=== PATIENT | female | born 2000 | race Caucasian/White ===

== ENCOUNTER → 2018-04-30 13:27 | Outpatient (REF) | payer MEDICAID, SELFPAY | LOC: LBN 13:27 | PROVIDERS: PCP Pediatrics; Visit Provider Nurse Practitioner Family | DX: R30.0 Dysuria (principal) | CPT/HCPCS: 87077; 87086; 87186 ==

== ENCOUNTER 2019-03-11 12:51 | Emergency (ER) | payer OTHER, SELFPAY ==
[2019-03-11 13:01] VITALS: BP 124/70; PULSE 96; RESP 14; TEMP 37.5; O2SAT 99
--- NOTE | 2019-03-11 13:12 | W.ED.GENAD ---
Discharge Plan Disposition Patient Disposition: HOME Condition: Improving Discharge Details Chief Complaint: Sorethroat Clinical Impression: Acute pharyngitis Primary Care Provider: Cynthia Patricio V ED Provider: Andrés Ruiz Home Meds and New Rx's Prescriptions: New penicillin V potassium 500 mg tablet 500 mg PO TID 10 Days Qty: 30 RF: 0 Continued fluoxetine [Prozac] 40 mg capsule 40 mg PO DAILY Qty: 30 RF: 1 medroxyprogesterone [Depo-Provera] 150 MG/1 ML suspension 150 mg IM ONCE Qty: 1 RF: 3 Discharge Instructions Instructions: Pharyngitis (ED) Additional Instructions: Take penicillin as prescribed for its entire course. Tylenol and/or ibuprofen as needed for discomfort. May use popsicles and/or frequent sips of fluids to maintain hydration. Return for difficulty swallowing, drooling, change to voice or any other acute concern Medical Decision Making 18-year-old female with 2 days of sore throat. She is not in any significant distress and her vital signs are unremarkable. She was seen in pediatric clinic on February 18 for similar illness that lasted 1 week. At that time her strep and mono tests were negative. Rapid strep test obtained today is positive. I will treat with a course of penicillin. Patient stable for home management HPI General Mode of arrival: ambulatory. Date/Time Provider Initiated Documentation: 03/11/19 12:57. Limitations to Documentation: no limitations. Information obtained by: patient and family. History of Present Illness 18 year old F presents to the emergency department with the chief complaint of 2 days of sore, described as moderate and similar to prior episodes, Quality is described as dull and constant, and is localized to the mouth. Patient reports no radiation. Patient started experiencing this day(s) and it has been constant. No relieving factors improve symptom(s), No exacerbating factors reported . Patient notes no other symptoms.; denies fever/chills and nausea/vomiting. Patient did receive the following treatments prior to arrival, none Related Data Home Medications Medication Instructions Recorded Confirmed medroxyprogesterone [Depo-Provera] 150 mg IM ONCE #1 vial 01/26/18 03/11/19 fluoxetine [Prozac] 40 mg PO DAILY #30 cap 03/09/19 03/11/19 penicillin V potassium 500 mg PO TID 10 Days #30 tab 03/11/19 Previous Rx's Medication Instructions Recorded medroxyprogesterone [Depo-Provera] 150 mg IM ONCE #1 vial 01/26/18 fluoxetine [Prozac] 40 mg PO DAILY #30 cap 03/09/19 penicillin V potassium 500 mg PO TID 10 Days #30 tab 03/11/19 Allergies Allergy/AdvReac Type Severity Reaction Status Date / Time diphenhydramine HCl Allergy Mild RASH Unverified 03/11/19 13:08 [From Benadryl] General Stated Complaint: Sorethroat EVELYN: 4 Review of Systems Review of Systems No fever, vomiting. Tolerating liquids, no drooling. 6 systems reviewed and otherwise neg [facility] Medical History Anxiety Depression Contraception (Acute) Nonintractable migraine (Acute 01/12/16) Acne (Resolved) Febrile seizure (Resolved) History of mononucleosis (Resolved) Allergy to diphenhydramine (from Benadryl) (Inactive) Family History Mother Healthy adult on routine physical examination Migraines Mental disorder Father Substance abuse Essential hypertension Heart disease Hyperlipidemia Mental disorder Myocardial infarction Asthma Other H/O blood clots Diabetes Mental disorder Stroke Sister Asthma Social History Smoking/Tobacco Use Status: Never Do you feel safe in your relationship?: Yes Female Reproductive History Menstrual control method: progesterone injection Exam Narrative Exam Narrative: GEN: awake, alert, oriented 3. Pleasant, well groomed, interactive. HEAD: Normocephalic, atraumatic ENT: Mucous membranes moist, oropharynx with erythematous swollen tonsils, overlying white exudate, no asymmetry, uvula midline. Right tympanic membrane occluded by cerumen, left tympanic membrane unremarkable, External ear exam unremarkable EYES: PERRL, EOMI NECK: Full ROM, no LISBETH, no menigismus CHEST/RESP: Nontender, clear to auscultation bilateral, no wheeze/rhonchi/rales CARDIOVASCULAR: RRR, no murmur, rub guillermo. 2+ Rad pulse bilateral ABDOMEN: Soft, nontender, no mass. +Bowel sounds EXT: Full ROM, no edema, no rash Neuro: Grossly normal neurologic exam, conversant, interactive. Psych: Speech fluent, thoughts congruent, affect normal Course Vital Signs Temperature 37.5 C 03/11/19 13:01 Pulse 96 H 03/11/19 13:01 Respiratory Rate 14 03/11/19 13:01 Blood Pressure 124/70 03/11/19 13:01 Pulse Oximetry 99 03/11/19 13:01 Temperature 37.5 C 03/11/19 13:01 Temperature Source Skin 03/11/19 13:01 Pulse 96 H 03/11/19 13:01 Respiratory Rate 14 03/11/19 13:01 Blood Pressure 124/70 03/11/19 13:01 Blood Pressure Position Sitting 03/11/19 13:01 Pulse Oximetry 99 03/11/19 13:01 Oxygen Delivery Method Room Air 03/11/19 13:01 Oxygen Flow Rate 0 03/11/19 13:01
[2019-03-11 13:18] VITALS: TEMP 37.5
[2019-03-11] MEDS: Acetaminophen 500 MG TAB 1000 MG PO (13:18)
== END 2019-03-11 13:23 | disposition home or self-care (01) ==
PROVIDERS: Emergency Provider Emergency Medicine; PCP Pediatrics
DX: J02.9 Acute pharyngitis, unspecified (principal)
CPT/HCPCS: 87880; 99282

== ENCOUNTER 2019-03-12 16:02 | Outpatient (REF) | payer OTHER, SELFPAY ==
[2019-03-15 14:28] LABS: Chlamydia Result Negative; GC Result Negative; Specimen Description URINE
== END 2019-03-12 16:22 ==
LOC: LBN 16:02
PROVIDERS: PCP Pediatrics; Visit Provider Nurse Practitioner Family
DX: Z11.3 Encounter for screening for infections with a predominantly sexual mode of transmission (principal)
CPT/HCPCS: 87491; 87591

== ENCOUNTER 2019-08-02 10:34 | Emergency (ER) | payer SELFPAY ==
[2019-08-02 10:39] VITALS: BP 124/65; PULSE 108; RESP 16; TEMP 37.3; O2SAT 100
--- NOTE | 2019-08-02 10:50 | ED.GENADUL_ITS ---
Discharge Plan Disposition Patient Disposition: HOME Condition: Stable Discharge Details Chief Complaint: FlankPain Clinical Impression: Back pain Primary Care Provider: Cynthia Patricio V ED Provider: Radha Aldana Home Meds and New Rx's Prescriptions: New cyclobenzaprine 5 mg tablet 5 mg PO TID PRN (Reason: muscle spasm) Qty: 15 RF: 0 lidocaine [Lidoderm] 5 % adhesive patch,medicated 1 patch TP DAILY Qty: 15 RF: 0 Discharge Instructions Instructions: Cyclobenzaprine (By mouth), Lidocaine Patch (On the skin), Back Pain (ED) Additional Instructions: Please return immediately to the emergency department if you develop any new or worsening symptoms or if you become otherwise concerned. It is extremely important you call soon as possible to make appointment to be seen in follow-up for this visit by your primary care doctor. Please do not drive, make important decisions, or operate machinery for at least 4 hours after emergency room visit as you have been given Valium. Also do not drive, make important decisions, or operate machinery while taking Flexeril and until you have tried the medication and determine whether it makes you feel woozy or sleepy. Referrals: Cynthia Patricio MD [Primary Care Provider] - Discharge Data Discharge Date/Time-TO BE ENTERED AT DEPARTURE: 08/02/19 12:56 Medical Decision Making Michelle Banuelos is a 18-year-old woman with a history of anxiety who presented to the emergency department with 3 days of ongoing back pain, unchanged since onset, pain in both lumbar and thoracic areas without associated symptoms, worse with changes in position/movement, nonpleuritic, nonexertional. On examination patient is very well and nontoxic appearing. She appears comfortable during position changes in exam room. Normal neurologic exam the lower extremities, normal gait. Tenderness palpation that reproduces pain in the left L4 paraspinal region and also in the right T10 paraspinal region without bony tenderness palpation of the thoracic or lumbar spine. Concern for likely musculoskeletal pain/muscle spasm, doubt kidney stone, pyelonephritis. Exam/history is not consistent with cauda equina syndrome, epidural abscess/hematoma, other cord compression, acute aortic pathology, acute emergent intra-abdominal process, pulmonary embolism, ACS, sepsis, other acute emergent life/limb threatening process. Plan for p.o. Valium, Lidoderm patch, UA. Will monitor and reassess. Patient reports pain significantly improved after Valium and Lidoderm patch. Postvoid residual shows no urine in bladder per nursing. UA shows ketones, trace blood. Tachycardia resolved. Suspect likely musculoskeletal pain, however I did discuss obtaining CT for rule out kidney stones given trace blood in urine. Risks and benefits of CT scan were discussed with patient, who states that she feels much better at this time and would like to hold off on CT. I had a lengthy discussion with the patient regarding return to emergency department cautions including red flags for which to return, home care, and importance of outpatient follow-up. Patient verbalized understanding of the plan and was amenable. All questions were answered. Patient was discharged home with clear plan for outpatient follow-up. Medical Records Medical records reviewed: Yes I reviewed the patient's medical records. Lab Data Lab results reviewed: Yes I reviewed the patient's lab results. Labs: Laboratory Tests Range/Units 08/02/19 11:00 Urine Color (Yellow) Yellow Urine Clarity (Clear) Sl cloudy Urine pH (5-8) 5.5 Ur Specific [place] (1.005-1.025) 1.025 Urine Protein (Negative) mg/dL Negative Urine Ketones (Negative) mg/dL 15 H Urine Blood (Negative) Trace-lysed H Urine Nitrite (Negative) Negative Urine Bilirubin (Negative) Small H Urine Urobilinogen (Up TO 0.2) EU/dL 0.2 Ur Leukocyte Esterase (Negative) Negative Urine RBC (0-2) HPF Negative Urine WBC (0-5) HPF 0-2 Ur Epithelial Cells (Negative) HPF Moderate Urine Crystals (Negative) HPF Negative Urine Bacteria (Negative) HPF Moderate Urine Casts (Negative) LPF Negative Urine Mucus (Negative) Moderate Ur Culture Indicated? No/sq. contamination Urine Glucose (Negative) mg/dL Negative HPI General Mode of arrival: ambulatory . Date/Time Provider Initiated Documentation: 08/02/19 10:50 . Limitations to Documentation: no limitations . Information obtained by: patient, RN notes reviewed and old records reviewed . HPI Narrative: Michelle Banuelos is a 18-year-old woman with a history of anxiety presenting to the emergency department with back pain. Patient reports that she has had history of chronic back pain, although she states that her pain is usually relieved by using heating pad. Patient reports that 3 days ago she was seated when she developed sudden onset pain in her lower back, worse on the left. Patient reports that pain is worse with movement and position changes such as moving from lying down to sitting or rolling over in bed. Patient reports that severity of pain was maximal at onset, improved somewhat with rest but does not go away. Patient reports that she also has pain bilaterally in her mid back, this seems to radiate from her lower back pain and is not as severe as her lower back pain. Pain is similar in location (lower and mid back) and quality (feels like a spasm) to pain she has had before, but is worse in severity and duration than prior episodes. Patient denies any other pain. Pain is nonpleuritic, nonexertional. She denies fevers, cough, shortness of breath, numbness, weakness, change in urinary habits/function, constipation/diarrhea/change in bowel function, rash. Patient reports that she feels otherwise in her usual state of health. Patient states that she has not had a period since last spring secondary to Depakote shot, although she has now switched over to p.o. control. She takes no other p.o. medications. Has taken nothing at home for the pain. Related Data Home Medications Medication Instructions Recorded Confirmed cyclobenzaprine 5 mg PO TID PRN #15 tab 08/02/19 lidocaine [Lidoderm] 1 patch TP DAILY #15 each 08/02/19 Previous Rx's Medication Instructions Recorded cyclobenzaprine 5 mg PO TID PRN #15 tab 08/02/19 lidocaine [Lidoderm] 1 patch TP DAILY #15 each 08/02/19 Allergies Allergy/AdvReac Type Severity Reaction Status Date / Time diphenhydramine HCl Allergy Mild RASH Unverified 08/02/19 10:45 [From Bencamilol] General Stated Complaint: FlankPain EVELYN: 3 Review of Systems Narrative: Constitutional: denies fevers Eyes: denies eye pain ENT: denies facial pain, dental pain, sore throat Cardiovascular: denies chest pain Respiratory: denies SOB, cough GI: denies abdominal pain, vomiting, diarrhea : Denies dysuria, difficulty urinating, urinary frequency, reports flank pain MSK: denies neck pain, arthralgias, myalgias, reports back pain Skin: denies rash Neuro: denies headaches, numbness, weakness [facility] Medical History Acne (Resolved) Allergy to diphenhydramine (from Benadryl) (Inactive) Anxiety (Acute) Contraception (Acute) Depression (Acute) Febrile seizure (Resolved) History of mononucleosis (Resolved) Nonintractable migraine (Acute 01/12/16) Social History Smoking/Tobacco Use Status: Never Alcohol Intake: never Drug use: Never Substance use type: does not use Do you feel safe at home: Yes Do you feel safe in your relationship?: Yes Female Reproductive History Menstrual control method: progesterone injection (Lot#: [id number]; 03/2021) Exam Narrative Exam Narrative: Constitutional: well and [id number], pleasant, conversing normally, moving from lying down to sitting position without apparent discomfort HENT: head atraumatic/normocephalic/normal inspection, mucous membranes moist Eyes: conjunctiva normal, sclera normal, pupils 3mm b/l Neck: no stridor, normal ROM, trachea midline Resp: normal work of breathing, LCTAB Cardio: normal rate, normal rhythm, no murmur appreciated GI: abdomen soft, non-tender, non-distended, positive CVA tenderness bilaterally Back: normal inspection, no rash, tenderness to palpation left paraspinal area L4 level that reproduces pain, tenderness to palpation right paraspinal level at T10 that reproduces pain, no thoracic or lumbar vertebral tenderness palpation, no overlying skin changes Skin: warm, dry, normal color, no rash Neuro: alert, not altered, grossly non-focal, motor 5 out of 5 bilateral lower extremities, normal sensation bilateral lower extremities including saddle region, normal gait, normal tone Ext: no edema Psych: normal mood, normal affect, normal behavior Course Vital Signs Vital signs: Vital Signs Temperature 37.3 C 08/02/19 10:39 Pulse 108 H 08/02/19 10:39 Respiratory Rate 16 08/02/19 10:39 Blood Pressure 124/65 08/02/19 10:39 Pulse Oximetry 100 08/02/19 10:39 Temperature 37.3 C 08/02/19 10:39 Temperature Source Skin 08/02/19 10:39 Pulse 108 H 08/02/19 10:39 Respiratory Rate 16 08/02/19 10:39 Respiratory Effort 08/02/19 10:47 Blood Pressure 124/65 08/02/19 10:39 Blood Pressure Position Sitting 08/02/19 10:39 Pulse Oximetry 100 08/02/19 10:39 Oxygen Delivery Method Room Air 08/02/19 10:39 Oxygen Flow Rate 0 08/02/19 10:39 Pain Level 8 08/02/19 10:39 Comment tried heating pad without relief 08/02/19 10:39
[2019-08-02 11:09] LABS: Bilirubin Small (Negative); Blood Trace-lysed (Negative); Clarity Sl Cloudy (Clear); Glucose Negative (Negative); Ketones 15 mg/dL (Negative); Leukocyte Esterase Negative (Negative); Nitrite Negative (Negative); Specific Gravity 1.025 (1.005-1.025); Urobilinogen 0.2 EU/dL (Up TO 0.2); pH 5.5 (5-8)
[2019-08-02 11:16] LABS: Bacteria Moderate HPF (Negative); C & S Indicated? No/Sq. Contamination; Casts Negative LPF (Negative); Crystals Negative HPF (Negative); Epithelial Cells Moderate HPF (Negative); Mucus Moderate (Negative); RBC Negative HPF (0-2); WBC 0-2 HPF (0-5)
[2019-08-02] MEDS: Lidocaine 5% Patch 1 PATCH TP (11:36)
[2019-08-02] MEDS: diazePAM 5 MG TAB PO (11:37)
[2019-08-02 12:56] VITALS: BP 102/56; PULSE 101; RESP 18; TEMP 36.8; O2SAT 100
== END 2019-08-02 12:56 | disposition home or self-care (01) ==
PROVIDERS: Emergency Provider Student in an Organized Health Care Education/Training Program; PCP Pediatrics
DX: M54.5 Low back pain (principal); M54.6 Pain in thoracic spine
CPT/HCPCS: 81025; 99284; 81003; 81015

== ENCOUNTER 2020-05-18 15:55 | Emergency (ER) | payer SELFPAY ==
[2020-05-18 16:12] VITALS: BP 126/69; PULSE 81; RESP 20; TEMP 36.6; O2SAT 98
--- NOTE | 2020-05-18 16:30 | ED.GENADUL_ITS ---
Discharge Plan Disposition Patient Disposition: HOME Discharge Details Chief Complaint: Sorethroat Clinical Impression: Acute streptococcal pharyngitis Primary Care Provider: Cynthia Patricio V ED Provider: Justin Aldana Home Meds and New Rx's Prescriptions: New penicillin V potassium 500 mg tablet 500 mg PO BID Qty: 19 RF: 0 Discharge Instructions Instructions: Strep Throat (ED) Additional Instructions: Patient prefers to stay hydrated. Please allow for plenty of rest. Take antibiotic as prescribed. Follow-up with your primary care physician as needed. Return to the emerge department for any worsening or new concerning symptoms. Stand Alone Forms: Work Release Referrals: Cynthia Patricio MD [Primary Care Provider] - Discharge Data Discharge Date/Time-TO BE ENTERED AT DEPARTURE: 05/18/20 16:40 Medical Decision Making 19-year-old female here with pharyngitis. Rapid strep test positive. Discussed risk benefits of antibiotic treatment versus supportive care. Patient provided informed consent to treat with antibiotic. Penicillin initiated and prescription provided. Usual and customary discharge instructions were reviewed with the patient. HPI General Mode of arrival: ambulatory . Date/Time Provider Initiated Documentation: 05/18/20 16:30 . Limitations to Documentation: no limitations . Information obtained by: patient . HPI Narrative: 19-year-old female here with chief complaint of sore throat. Patient notes her boyfriend has had sore throat over the past week or so, was seen here in the emergency room and diagnosed with strep pharyngitis now on penicillin. She states her sore throat started this morning. Sore throat is mild to moderate. No modifiers. No associated difficulty swallowing. No changes to her voice. No fever. No rash. Patient has no abdominal pain or swelling. Related Data Home Medications Medication Instructions Recorded Confirmed penicillin V potassium 500 mg PO BID #19 tab 05/18/20 Previous Rx's Medication Instructions Recorded penicillin V potassium 500 mg PO BID #19 tab 05/18/20 Allergies Allergy/AdvReac Type Severity Reaction Status Date / Time diphenhydramine HCl Allergy Mild RASH Unverified 05/18/20 16:14 [From Benadryl] General Stated Complaint: Sorethroat EVELYN: 4 Review of Systems Constitutional Constitutional: Denies fever(s) ENT Ears, Nose, Mouth, and Throat: Reports as per HPI Cardiovascular Cardiovascular: Denies dyspnea Respiratory Respiratory: Denies cough and Denies dyspnea Gastrointestinal Gastrointestinal: Denies abdominal pain Integumentary/Breasts Skin/Breast: Denies rash PFSH Medical History Acne (Resolved) Allergy to diphenhydramine (from Benadryl) (Inactive) Anxiety (Acute) Contraception (Acute) Depression (Acute) Febrile seizure (Resolved) History of mononucleosis (Resolved) Nonintractable migraine (Acute 01/12/16) Family History Mother Healthy adult on routine physical examination Migraines Mental disorder Depression/anxiety Father Substance abuse Essential hypertension Heart disease Hyperlipidemia Mental disorder Depression/anxiety Myocardial infarction Asthma Other H/O blood clots PGM- from abd- caused stroke Diabetes PGM Mental disorder Grandparent - depression Stroke PGM Sister Asthma Social History Smoking/Tobacco Use Status: Never Alcohol Intake: never Drug use: Never Substance use type: does not use Do you feel safe at home: Yes Do you feel safe in your relationship?: Yes Female Reproductive History Menstrual control method: progesterone injection (Lot#: [id number]; 03/2021) Exam Const General: cooperative and no acute distress HENMT Mouth: moist mucous membranes and no muffled voice Throat: uvula midline, no peritonsillar masses and posterior oropharynx abnormal erythema and exudates; no cobblstoning and no edema Eyes Conjunctivae: normal conjunctivae Sclera: normal sclerae Neck Neck: trachea midline and supple Resp Auscultation: clear to auscultation bilaterally, no rales, no rhonchi and no wheezes Cardio Jugular venous pressure: no JVD Rate: regular rate and not tachycardic Rhythm: regular rhythm GI Palpation: soft, no masses and nontender Skin General skin exam: no rashes or lesions noted Neuro General: patient alert, patient awake and tone normal Course Vital Signs Vital signs: Vital Signs Temperature 36.6 C 05/18/20 16:12 Pulse 81 05/18/20 16:12 Respiratory Rate 20 05/18/20 16:12 Blood Pressure 126/69 05/18/20 16:12 Pulse Oximetry 98 05/18/20 16:12 Temperature 36.6 C 05/18/20 16:12 Temperature Source Skin 05/18/20 16:12 Pulse 81 05/18/20 16:12 Respiratory Rate 20 05/18/20 16:12 Respiratory Effort Non-Labored 05/18/20 16:15 Blood Pressure 126/69 05/18/20 16:12 Blood Pressure Position Sitting 05/18/20 16:12 Pulse Oximetry 98 05/18/20 16:12 Oxygen Delivery Method Room Air 05/18/20 16:12 Oxygen Flow Rate 0 05/18/20 16:12 Pain Level 4 05/18/20 16:12 Lab/Test Results Lab/Test Results: POC Strep Test-KENYA(Rapid) Start: 05/18/20 16:15 Freq: Status: Active Protocol: Document 05/18/20 16:25 (Rec: 05/18/20 16:25 [email or web address]) Strep test-KENYA(Rapid)-POC POC-Strep test-KENYA (Rapid) Positive POC-Strep test-KENYA (Rapid) Positive
--- NOTE | 2020-05-18 16:35 | NUR.NOTE ---
Referral to Care Management to Establish adult health care.Nursing Note:
[2020-05-18] MEDS: Penicillin V POTASSIUM 500 MG TAB PO (16:38)
--- NOTE | 2020-05-25 10:19 | PDOC.ERCMPRO ---
- If Service Date Differs Date of service: 05/18/20 Time of Service: 10:19 Care Management Progress Note At ED provider's request, INGRID coordinated referral to Manjula Huddleston MD, on-call provider, of [facility], to assist Michelle in obtaining a follow up appointment and in establishing care with a PCP. The following day, INGRID was advised by Lakeisha Weber, clinical companion caregiver at [facility], that patient was called and offered an appointment, but patient declined saying she did not want a provider at this time.
== END 2020-05-18 16:40 | disposition home or self-care (01) ==
PROVIDERS: Emergency Provider Student in an Organized Health Care Education/Training Program; PCP Pediatrics
DX: J02.0 Streptococcal pharyngitis (principal)
CPT/HCPCS: 87880; 99283

== ENCOUNTER 2020-12-03 13:39 | Emergency (ER) | payer SELFPAY ==
--- NOTE | 2020-12-03 13:30 | RT.EKG_ITS ---
APPROVED REPORT Exam: Resting ECG Patient Location: E HR:86 bpm ECG Measurements Heart Rate 86 AXIS MO 118 P 53 QRSd 80 QRS 103 QT 346 T 25 QTc 415 Conclusion Sinus rhythm...normal P axis, V-rate 60- 99
[2020-12-03 13:46] VITALS: BP 125/72; PULSE 121; RESP 20; TEMP 37.2; O2SAT 99
[2020-12-03 13:50] VITALS: RESP 20
[2020-12-03 14:32] VITALS: BP 117/64; BP 119/78; BP 121/67; PULSE 77; PULSE 78; PULSE 89
--- NOTE | 2020-12-03 14:33 | ED.GENADUL_ITS ---
Discharge Plan Disposition Patient Disposition: HOME Condition: Improving Discharge Details Clinical Impression: Episodic peripheral vertigo Primary Care Provider: None,None ED Provider: Andrés Ruiz Home Meds and New Rx's Prescriptions: New meclizine 25 mg tablet 25 mg PO BID PRN (Reason: dizziness) Qty: 10 RF: 0 Discharge Instructions Instructions: Vertigo (ED) Additional Instructions: Continue small, frequent sips of fluids so that you maintain good hydration. Avoid caffeinated and alcoholic drinks as they may promote dehydration. May trial meclizine twice daily if needed for persistent dizziness. We have asked our care management team to assist you in arranging the establishment of primary care in this area. Return to the ER for any acute concerns. Medical Decision Making Medical Records Medical records narrative: 20-year-old female presents for a number of complaints. First is that she has had some intermittent episodes of dizziness which she describes as a motion sensation that is worse with movement of the head and similar to previous episodes of vertigo. She is not been ill in any way and specifically denies fever, chills, rhinorrhea, sinus pain or pressure. Secondarily, she has had vaginal itching for which she tried vaginal Monistat. No new sexual partners, no foul-smelling discharge, no abdominal pain. Patient underwent screening EKG which was unremarkable. Recommended the patient that we rule out anemia, electrolyte abnormality, or dehydration through phlebotomy which she declines at this time. She underwent orthostatic vital signs which were normal. She was given a Diflucan p.o. for vaginal yeast infection and we will trial meclizine as needed for peripheral vertigo. She will return if she develops a headache, fever, worsening symptoms or any other acute concerns. We will have her referred to establish primary care. HPI General Mode of arrival: ambulatory . Date/Time Provider Initiated Documentation: 12/03/20 14:19 . Limitations to Documentation: no limitations . Information obtained by: patient . History of Present Illness 20 year old F presents to the emergency department with the chief complaint of Dizziness, described as mild, and is localized to the head. Patient reports no radia tion. Patient started experiencing this day(s) and it has been intermittent. Rest improves symptom(s), Movement worsens symptoms . Patient notes other (vaginal itching). Patient did receive the following treatments prior to arrival, none Related Data Home Medications Medication Instructions Recorded Confirmed meclizine 25 mg PO BID PRN #10 tab 12/03/20 Previous Rx's Medication Instructions Recorded meclizine 25 mg PO BID PRN #10 tab 12/03/20 Allergies Allergy/AdvReac Type Severity Reaction Status Date / Time diphenhydramine HCl Allergy Mild RASH Unverified 12/03/20 13:49 [From Benadryl] General Stated Complaint: Dizzy/Sync EVELYN: 3 Review of Systems Narrative: 6 systems reviewed and otherwise neg [facility] Medical History (Updated 12/03/20 @ 14:45 by Andrés Ruiz MD) Acne Allergy to diphenhydramine (from Benadryl) Anxiety Contraception Depression Febrile seizure History of mononucleosis Nonintractable migraine (01/12/16) Family History Mother Healthy adult on routine physical examination Migraines Mental disorder Depression/anxiety Father Substance abuse Essential hypertension Heart disease Hyperlipidemia Mental disorder Depression/anxiety Myocardial infarction Asthma Other H/O blood clots PGM- from abd- caused stroke Diabetes PGM Mental disorder Grandparent - depression Stroke PGM Sister Asthma Social History Smoking/Tobacco Use Status: Current every day Tobacco Type: e-cigarettes Smoking risk assessment performed?: Yes Alcohol Intake: current Alcohol Intake frequency: holidays/special occasions only Drug use: Never Substance use type: does not use Do you feel safe at home: Yes Do you feel safe in your relationship?: Yes Female Reproductive History Menstrual control method: progesterone injection (Lot#: [id number]; 03/2021) Exam Narrative Exam Narrative: GEN: awake, alert, oriented 3. Pleasant, well groomed, interactive. HEAD: Normocephalic, atraumatic ENT: Mucous membranes moist, oropharynx unremarkable, External ear exam unremarkable EYES: PERRL, EOMI NECK: Full ROM, no LISBETH, no menigismus CHEST/RESP: Nontender, clear to auscultation bilateral, no wheeze/rhonchi/rales CARDIOVASCULAR: RRR, no murmur, rub guillermo. 2+ Rad pulse bilateral ABDOMEN: Soft, nontender, no mass. +Bowel sounds EXT: Full ROM, no edema, no rash Neuro: Grossly normal neurologic exam, conversant, interactive. Psych: Speech fluent, thoughts congruent, affect normal Course Vital Signs Vital signs: Vital Signs Temperature 37.2 C 12/03/20 13:46 Pulse 121 H 12/03/20 13:46 Respiratory Rate 20 12/03/20 13:46 Blood Pressure 125/72 12/03/20 13:46 Pulse Oximetry 99 12/03/20 13:46 Temperature 37.2 C 12/03/20 13:46 Temperature Source Skin 12/03/20 13:46 Pulse 121 H 12/03/20 13:46 Respiratory Rate 20 12/03/20 13:50 Respiratory Effort 12/03/20 13:50 Respiratory Depth Normal 12/03/20 13:50 Respiratory Pattern Normal 12/03/20 13:50 Blood Pressure 125/72 12/03/20 13:46 Blood Pressure Position Sitting 12/03/20 13:46 Pulse Oximetry 99 12/03/20 13:46 Oxygen Delivery Method Room Air 12/03/20 13:46 Oxygen Flow Rate 0 12/03/20 13:46 Pain Level 0 12/03/20 13:46
[2020-12-03] MEDS: Meclizine 25 MG TAB PO (14:44)
[2020-12-03] MEDS: Fluconazole 150 MG TAB PO (14:44)
--- NOTE | 2020-12-03 14:49 | NUR.NOTE ---
Nursing Note: Referral given to Care Management to establish care with a PCP.Michelle Campo
[2020-12-03 14:51] VITALS: BP 125/72; PULSE 90; RESP 20; TEMP 37.2; O2SAT 99
--- NOTE | 2020-12-04 16:12 | PDOC.ERCMPRO ---
- If Service Date Differs Date of service: 12/04/20 Time of Service: 16:12 Care Management Progress Note Michelle was seen in the ED on 12/03/20 for peripheral vertigo. CM receives a request to help Michelle establish care with a PCP. CM contacts Michelle by telephone to inquire if she has health insurance. Michelle advises she does not currently have health insurance and is not interested in applying for health insurance. She also does not want a primary care physician at this time. When CM attempts to discuss this further with Michelle, she reports she's at work and does not have the time to discuss it. CM will outreach to her at a later time.
== END 2020-12-03 14:51 | disposition home or self-care (01) ==
PROVIDERS: Emergency Provider Emergency Medicine
DX: H81.399 Other peripheral vertigo, unspecified ear (principal); B37.3 Candidiasis of vulva and vagina
CPT/HCPCS: 81025; 93005; 99283; 93010

== ENCOUNTER 2022-01-08 16:37 | Emergency (ER) | payer SELFPAY ==
[2022-01-08 16:47] VITALS: BP 131/78; PULSE 105; RESP 18; TEMP 36.7; O2SAT 100
--- NOTE | 2022-01-08 17:00 | DI.RAD_ITS ---
Exam(s) XR CHEST 2V PA LATERAL EXAM: XR CHEST 2V PA LATERAL CLINICAL HISTORY: posterior pain TECHNIQUE: 2D digital imaging was performed. COMPARISON: No exams were available for comparison FINDINGS: MEDIASTINUM: Normal. HEART: Normal. PULMONARY VASCULATURE: Normal. LUNGS: Clear. PLEURAL SPACE: No pleural effusion or pneumothorax. BONE:Unremarkable for age. IMPRESSION: No acute abnormality. DATA REPOSITORY: RADIATION DOSE DELIVERED:
--- NOTE | 2022-01-08 17:18 | ED.GENADUL_ITS ---
Discharge Plan Disposition Patient Disposition: HOME Condition: Improving Discharge Details Clinical Impression: Acute thoracic myofascial strain Primary Care Provider: None,None ED Provider: Andrés Ruiz Home Meds and New Rx's Prescriptions: New methocarbamol 500 mg tablet 500 - 1,000 mg PO Q6H PRN (Reason: Back pain or spasm) Qty: 14 0RF Discharge Instructions Instructions: Thoracic Back Strain (ED) Additional Instructions: Small, frequent sips of fluids so that you maintain good hydration. Your urine showed that you are well-hydrated today. You may continue to use [id number] Lidoderm patches if you wish. They should be used 12 hours and then with 12 hours off. May apply warm, moist heat to area to speed healing. May use the provided Robaxin as needed for muscular pain and discomfort. Tylenol and/or ibuprofen as needed for persistent pain. 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 She does not have a cough, fever, or shortness of breath. No change to urinary pattern. On exam she has reproducible tenderness of the mid thoracic paraspinous musculature with mild spasm present. Most consistent with muscular spasm but must rule out underlying pneumothorax, occult pneumonia, or bony process and patient referred for screening chest x-ray and urinalysis. She is not , urine is unremarkable. Chest x-ray: No acute cardiopulmonary process Will trial a course of Robaxin for as needed use at home. Patient may use gentle massage as well. Discussed with her home management. She is stable and appropriate for discharge at this time HPI General Mode of arrival: ambulatory . Date/Time Provider Initiated Documentation: 01/08/22 16:41 . Limitations to Documentation: no limitations . Information obtained by: patient . History of Present Illness 21 year old F presents to the emergency department with the chief complaint of Mid back pain x 4 days, described as moderate, Quality is described as dull and constant, Patient reports no radiation. Patient started experiencing this day(s) and it has been constant. improves with Rest improves symptom(s), Movement worsens symptoms . Patient notes denies chest pain, cough, rash and shortness of breath. Patient did receive the following treatments prior to arrival, none Related Data Home Medications Medication Instructions Recorded Confirmed methocarbamol 500 mg tablet 500 - 1,000 mg PO Q6H PRN #14 tab 01/08/22 Previous Rx's Medication Instructions Recorded methocarbamol 500 mg tablet 500 - 1,000 mg PO Q6H PRN #14 tab 01/08/22 Allergies Allergy/AdvReac Type Severity Reaction Status Date / Time diphenhydramine HCl Allergy Mild RASH Unverified 01/08/22 16:58 [From Benadryl] General Stated Complaint: Nk/Back Pain EVELYN: 4 Review of Systems Narrative: 6 reviewed and - PFSH All Active Problems (Updated 01/08/22 @ 17:55 by Andrés Ruiz MD) Episodic peripheral vertigo (Acute) Acute thoracic myofascial strain (Acute) Anxiety (Acute) Depression (Acute) Contraception (Acute) Nonintractable migraine (Acute 01/12/16) Medical History (Updated 01/08/22 @ 17:55 by Andrés Ruiz MD) Acne Allergy to diphenhydramine (from Benadryl) Febrile seizure History of mononucleosis Family History Mother Healthy adult on routine physical examination Migraines Mental disorder Depression/anxiety Father Substance abuse Essential hypertension Heart disease Hyperlipidemia Mental disorder Depression/anxiety Myocardial infarction Asthma Other H/O blood clots PGM- from abd- caused stroke Diabetes PGM Mental disorder Grandparent - depression Stroke PGM Sister Asthma Social History Smoking/Tobacco Use Status: Current every day Tobacco Type: e-cigarettes Tobacco: How many years used: 2 Smoking risk assessment performed?: Yes Alcohol Intake: current Alcohol Intake frequency: holidays/special occasions only Drug use: Never Substance use type: does not use Do you feel safe at home: Yes Do you feel safe in your relationship?: Yes Female Reproductive History Menstrual control method: progesterone injection (Lot#: [id number]; 03/2021) Exam Narrative Exam Narrative: GEN: awake, alert, oriented 3. Pleasant, well groomed, interactive. HEAD: Normocephalic, atraumatic ENT: Mucous membranes moist, oropharynx unremarkable, External ear exam unremarkable EYES: PERRL, EOMI NECK: Full ROM, no LISBETH, no menigismus CHEST/RESP: Nontender, clear to auscultation bilateral, no wheeze/rhonchi/rales CARDIOVASCULAR: RRR, no murmur, rub guillermo. 2+ Rad pulse bilateral Back: Mid thoracic paraspinous muscular tenderness without midline tenderness, step-off or deformity. No rash present. EXT: Full ROM, no edema, no rash Neuro: Grossly normal neurologic exam, conversant, interactive. Psych: Speech fluent, thoughts congruent, affect normal Course Vital Signs Vital signs: Vital Signs Temperature 36.7 C 01/08/22 16:47 Pulse 105 H 01/08/22 16:47 Respiratory Rate 18 01/08/22 16:47 Blood Pressure 131/78 01/08/22 16:47 Pulse Oximetry 100 01/08/22 16:47 Temperature 36.7 C 01/08/22 16:47 Temperature Source Tympanic 01/08/22 16:47 Pulse 105 H 01/08/22 16:47 Respiratory Rate 18 01/08/22 16:47 Respiratory Effort 01/08/22 16:54 Blood Pressure 131/78 01/08/22 16:47 Blood Pressure Position Sitting 01/08/22 16:47 Pulse Oximetry 100 01/08/22 16:47 Oxygen Delivery Method Room Air 01/08/22 16:47 Oxygen Flow Rate 0 01/08/22 16:47 Pain Level 5 01/08/22 16:54 Lab/Test Results Lab/Test Results: POC- Test(urine) Negative
[2022-01-08 17:27] LABS: Bilirubin Negative (Negative); Blood Negative (Negative); Clarity Clear (Clear); Glucose Negative (Negative); Ketones Negative (Negative); Leukocyte Esterase Negative (Negative); Nitrite Negative (Negative); Specific Gravity 1.015 (1.005-1.025); Urobilinogen 0.2 EU/dL (Up TO 0.2)
--- NOTE | 2022-01-08 17:58 | DI.VRAD_ITS ---
PROCEDURE INFORMATION: Exam: XR Chest Exam date and time: 01/08/2022 5:24 PM Age: 21 years old Clinical indication: Other: Posterior pain TECHNIQUE: Imaging protocol: XR of the chest. Views: 2 views. COMPARISON: CT ABD PELVIS WITH CONTRAST 01/23/2016 10:14 AM FINDINGS: Lungs: Clear lungs. Pleural spaces: No sizable pleural effusion. No pneumothorax. Heart/Mediastinum: Cardiomediastinal silhouette is within normal limits. Bones/joints: No acute displaced fracture or dislocation. IMPRESSION: No acute cardiopulmonary process. Dictated and Authenticated by: Roosevelt Escobedo MD. Ordering:PROMISE Bowen MD
[2022-01-08] MEDS: Methocarbamol 750 MG TAB 1500 MG PO (18:22)
== END 2022-01-08 18:42 | disposition home or self-care (01) ==
PROVIDERS: Emergency Provider Emergency Medicine
DX: S29.012A Strain of muscle and tendon of back wall of thorax, initial encounter (principal); X50.1XXA Overexertion from prolonged static or awkward postures, initial encounter
CPT/HCPCS: 81025; 99283; 71046; 81003

== ENCOUNTER 2023-01-11 06:52 | Emergency (ER) | payer SELFPAY ==
[2023-01-11 06:57] VITALS: BP 112/71; PULSE 133; RESP 24; TEMP 36.7; O2SAT 99
--- NOTE | 2023-01-11 07:23 | ED.GENADUL_ITS ---
Discharge Plan Disposition Patient Disposition: Home Condition: Stable Discharge Details Clinical Impression: Abdominal pain Primary Care Provider: None,None ED Provider: Ferdinand Rico Home Meds and New Rx's Prescriptions: New ondansetron 4 mg tablet,disintegrating 4 mg PO Q8H PRN (Reason: nausea and vomiting) Qty: 30 0RF Discharge Instructions Instructions: Mesenteric Adenitis (ED) Additional Instructions: You have evidence of a gastroenteritis/stomach bug your appendix was at the upper limits of normal, you were seen by the general surgeon and do not feel this is from your appendix at this time follow up with your primary care provider within 1 week if you feel more ill, have persisent vomiting or severe worsening pain return to the emergency department Discharge Data Discharge Date/Time-TO BE ENTERED AT DEPARTURE: 01/11/23 12:29 Medical Decision Making <Lena Russell DO - Last Filed: 01/11/23 22:05> Dr. Russell 0740 -- 22-year-old female with a history of anxiety and depression presents with vomiting, diarrhea and abdominal pain for the past 4 days. Heart rate 130s on arrival. Remainder vitals reassuring. Patient appears slightly uncomfortable but nontoxic. She is drinking Gatorade in the room. Her abdomen is soft and tender throughout including the right and left upper quadrants and right and left lower quadrants. She has no rebound tenderness, guarding or rigidity. She has no CVA tenderness. Suspect viral etiology. Also consider biliary colic, cholecystitis, pancreatitis, GERD, PUD, colitis, appendicitis, UTI. Will obtain screening labs, urinalysis, fluid, CT abdomen and pelvis. Urine negative. 0800 -- Case endorsed to Dr. Rico to follow-up on labs and imaging and final disposition. Dr. Rico [address] read as indeterminate possible appendicitis, also has mesenteric lymphadenopathy, mild bladder wall thickening and a right ovarian cyst 1.7cm. She denies any urinary symptoms. She is stable, still has tenderness in both llq and rlq without guarding. Will consult general surgery Dr Orta reviwed case and images and saw pt in person, does not feel this is appendicitis and can be d/c'd, has no guarding or rebound and tender in the llq and rlq, exam and history not consistent with appendicitis. Repeat cbc still without leukocytosis. She is stable for d/c, advised to f/u with pcp, return precautions given Medical Records Medical records reviewed: Yes I reviewed the patient's medical records. <Ferdinand Rico MD - Last Filed: 01/11/23 12:12> 0740 -- 22-year-old female with a history of anxiety and depression presents with vomiting, diarrhea and abdominal pain for the past 4 days. Heart rate 130s on arrival. Remainder vitals reassuring. Patient appears slightly uncomfortable but nontoxic. She is drinking Gatorade in the room. Her abdomen is soft and tender throughout including the right and left upper quadrants and right and left lower quadrants. She has no rebound tenderness, guarding or rigidity. She has no CVA tenderness. Suspect viral etiology. Also consider biliary colic, cholecystitis, pancreatitis, GERD, PUD, colitis, appendicitis, UTI. Will obtain screening labs, urinalysis, fluid, CT abdomen and pelvis. Urine negative. 0800 -- Case endorsed to Dr. Rico to follow-up on labs and imaging and final disposition. [address] read as indeterminate possible appendicitis, also has mesenteric lymphadenopathy, mild bladder wall thickening and a right ovarian cyst 1.7cm. She denies any urinary symptoms. She is stable, still has tenderness in both llq and rlq without guarding. Will consult general surgery Dr Orta reviwed case and images and saw pt in person, does not feel this is appendicitis and can be d/c'd, has no guarding or rebound and tender in the llq and rlq, exam and history not consistent with appendicitis. Repeat cbc still without leukocytosis. She is stable for d/c, advised to f/u with pcp, return precautions given Imaging Data Radiologic Study: Attestation: I personally reviewed and interpreted this imaging study as follows: Imaging: CT Scan Radiologist's impression: IMPRESSION: 1. Minimally dilated, thick-walled, fluid-filled appendix with minimal haziness in the periappendiceal fat. Findings are borderline but in the appropriate clinical setting could reflect early appendicitis. Clinical correlation requested. 2. Mesenteric lymphadenopathy, nonspecific. Consider mesenteric adenitis. Cannot exclude neoplasm. 3. Mild bladder wall thickening with adjacent stranding suggesting possible cystitis. Please correlate clinically. 4. Right ovarian cyst. 5. THIS REPORT CONTAINS FINDINGS THAT MAY BE CRITICAL TO PATIENT CARE. The findings were verbally communicated via telephone conference with Ferdinand Rico at 8:39 AM EDT on 01/11/2023. The findings were acknowledged and understood. HPI <Lena Russell DO - Last Filed: 01/11/23 22:05> General Mode of arrival: ambulatory . Date/Time Provider Initiated Documentation: 01/11/23 07:21 . Limitations to Documentation: no limitations . Information obtained by: patient . HPI Narrative: Patient is a 22-year-old female with history of anxiety and depression who presents to the ED with a complaint of vomiting once 4 days ago with diarrhea and abdominal pain for the past 4 days. Patient states the vomit was mainly food and bile. She states since then she has had multiple episodes of diarrhea which has been mainly watery and brown. She states it was near black a few days ago but now is yellow and brown again. She denies any hematemesis, hematochezia or melena. She states her abdominal pain is intermittent and crampy and briefly relieved with diarrhea but then returns. She states the abdominal pain is made better when laying flat. She states the pain in her abdomen is 7/10 at this time. She has not taken a medication for pain. She states she tried Pepto- Bismol a few days ago but had difficulty drinking it. 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 She states she is sexually active and does not use protection or contraception but denies any known ex posure to STDs, genital lesions or vaginal discharge. She denies any fever, chest pain, difficulty breathing, urinary symptoms, recent travel, recent surgery, recent antibiotics. Related Data Home Medications Medication Instructions Recorded Confirmed ondansetron 4 mg disintegrating 4 mg PO Q8H PRN nausea and 01/11/23 tablet vomiting #30 tabs Previous Rx's Medication Instructions Recorded ondansetron 4 mg disintegrating 4 mg PO Q8H PRN nausea and 01/11/23 tablet vomiting #30 tabs Allergies Allergy/AdvReac Type Severity Reaction Status Date / Time diphenhydramine HCl Allergy Mild RASH Unverified 01/11/23 08:35 [From Benadryl] General Stated Complaint: Nausea/Vomit/Diar EVELYN: 3 Review of Systems <DO Francoise Solis Last Filed: 01/11/23 22:05> All systems reviewed & are unremarkable except as noted in HPI and below Constitutional Constitutional: Reports as per HPI, Denies chills and Denies fever(s) Eyes Eyes: Denies blurry vision ENT Ears, Nose, Mouth, and Throat: Denies dizziness, Denies sore throat and Denies throat swelling Cardiovascular Cardiovascular: Denies chest pain and Denies dyspnea Respiratory Respiratory: Denies cough and Denies dyspnea Gastrointestinal Gastrointestinal: Reports abdominal pain, Reports diarrhea, Reports nausea and Reports vomiting Genitourinary Genitourinary: Denies hematuria and Denies dysuria Musculoskeletal Musculoskeletal: Denies back pain and Denies numbness Integumentary/Breasts Skin/Breast: Denies lesions and Denies rash Neurologic Neurologic: Denies dizziness, Denies localized weakness and Denies numbness Allergic/Immunologic Allergic/Immunologic: Denies throat swelling PFSH <Lena Russell DO - Last Filed: 01/11/23 22:05> All Active Problems (Updated 01/11/23 @ 21:43 by Bessy Orta DO) Gastroenteritis (Acute) Acute diarrhea (Acute) Intractable nausea and vomiting (Acute) Poor dentition (Acute) Abdominal pain (Acute) Contraception (Acute) Medical History Anxiety Depression Episodic peripheral vertigo Nonintractable migraine (01/12/16) Surgical History No significant past surgical history Family History Mother Healthy adult on routine physical examination Migraines Mental disorder Depression/anxiety Father Substance abuse Essential hypertension Heart disease Hyperlipidemia Mental disorder Depression/anxiety Myocardial infarction Asthma Other H/O blood clots PGM- from abd- caused stroke Diabetes PGM Mental disorder Grandparent - depression Stroke PGM Sister Asthma Social History Smoking/Tobacco Use Status: Current every day Tobacco Type: e-cigarettes Tobacco: How many years used: 2 Smoking risk assessment performed?: Yes Alcohol Intake: current Alcohol Intake frequency: holidays/special occasions only Drug use: Never Substance use type: does not use Do you feel safe at home: Yes Do you feel safe in your relationship?: Yes Female Reproductive History Menstrual control method: progesterone injection (Lot#: [id number]; 03/2021) Exam <DO Francoise Solis Last Filed: 01/11/23 22:05> Const General: cooperative and no acute distress Orientation: alert, awake and oriented x3 HENMT Head: normal to inspection Face and sinus: normal facial exam Eyes General: appearance normal, both eyes and all related structures Pupils: PERRL EOM: EOM intact bilaterally Neck Neck: normal visual inspection and No submandibular swelling Lymphatic: no lymphadenopathy noted Chest Chest: normal inspection of the chest and no tenderness Resp Effort & Inspection: normal respiratory effort and able to speak in complete sentences Auscultation: clear to auscultation bilaterally Cardio Rate: tachycardic Rhythm: regular rhythm GI Inspection: normal to inspection Palpation: soft, not firm, not rigid and tender in the LLQ, in the RLQ, in the LUQ, in the RUQ and suprapubicly Auscultation: hypoactive bowel sounds Back/Spine/Pelvis Back: no CVA tenderness Skin General skin exam: no rashes or lesions noted Neuro General: patient alert, patient awake and patient oriented x3 Cognition: normal cognition Speech: speech normal Motor: muscle tone normal throughout Sensory Exam: no sensory deficits noted Extrem General: normal to inspection, full ROM, capillary refill normal, no calf tenderness bilaterally and no edema Psych Appearance: grossly normal Mental Status: mental status grossly normal Speech and Movement: speech and movement normal Affect: normal affect Course <DO Francoise Solis Last Filed: 01/11/23 22:05> Vital Signs Vital signs: Vital Signs Temperature 98.1 F 01/11/23 06:57 Pulse 133 H 01/11/23 06:57 Respiratory Rate 24 01/11/23 06:57 Blood Pressure 112/71 01/11/23 06:57 Pulse Oximetry 99 01/11/23 06:57 Temperature 98.1 F 01/11/23 06:57 Pulse 133 H 01/11/23 06:57 Respiratory Rate 24 01/11/23 06:57 Blood Pressure 112/71 01/11/23 06:57 Pulse Oximetry 99 01/11/23 06:57 Sign Out <DO Francoise Solis Last Filed: 01/11/23 22:05> Sign Out Data: Sign Out Comment: Vomiting once on Friday. Diarrhea and diffuse abdominal pain for 4 days. Follow-up on labs and imaging and final disposition. Last updated by Lena Russell DO at 01/11/23 07:51
--- NOTE | 2023-01-11 07:45 | DI.CT_ITS ---
Exam(s) CT ABDOMEN PELVIS W EXAM: CT ABDOMEN PELVIS W CLINICAL HISTORY: abdominal pain, n/v TECHNIQUE: Imaging Protocol: Axial computed tomography images with coronal and sagittal reformatted images were created and reviewed CONTRAST MATERIAL: Intravenous: Omnipaque 350 Contrast volume:75 mL Oral: No COMPARISON: CT ABD PELVIS WITH CONTRAST from 01/23/2016 FINDINGS: ABDOMEN: Lung Bases: Normal where visualized. Liver: Normal density. No measurable mass. Portal, Superior Mesenteric, and Splenic Veins: Unremarkable. Gallbladder and Biliary Tract: No radiodense calculus or dilation. Pancreas: Normal density, no abnormal calcifications or inflammatory process. Spleen: Normal. Adrenals: No masses seen. Kidneys: Normal size, contour and axis. No radiodense stones or obstructive uropathy. No masses seen. Abdominal Aorta: Abdominal portion non-dilated. Bowel: No obstruction or bowel wall thickening. The appendix is fluid-filled with an enhancing wall. No appendicoliths is seen. Peritoneal Cavity: There is a small amount of pelvic ascites. No free air. Lymph Nodes: There are mildly enlarged lymph nodes seen in the mesentery. Bones: Within normal limits for the patient's age. Soft Tissues: Unremarkable. PELVIS: Bladder: The urinary bladder wall is thickened. The bladder is not well distended however. Reproductive Organs: There is a 1.9 cm right corpus luteal cyst. Lymph Nodes: Within normal limits. Bones: Within normal limits for the patient's age. IMPRESSION: 1. Upper limits of normal in size appendix with mild enhancing and thickening of the wall. No append icoliths. Questionable stranding around the appendix. This may represent early appendicitis in the appropriate clinical setting. Please correlate clinically. 2. Mildly enlarged lymph nodes in the mesentery concerning for mesenteric adenitis. Please correlate clinically. 3. Mild thickening of the wall of the urinary bladder. This may be due to underdistention however. Cystitis cannot be entirely excluded. Please correlate clinically. RADIATION DOSE DELIVERED: 589.43mGy.cm Total DLP DATA REPOSITORY: All CT scans at this facility are submitted to the National Radiology Data Registry (NRDR) Dose Index Registry (DIR) with the [employer] (ACR). RADIATION OPTIMIZATION: All CT scans at this facility use at least one of these dose optimization te chniques: automated exposure control; mA and/or kV adjustment per patient size (includes targeted exa ms where dose is matched to clinical indication); or iterative reconstruction.
[2023-01-11 07:53] LABS: Bilirubin Small (Negative); Blood Trace-intact (Negative); Clarity Sl Cloudy (Clear); Glucose Negative (Negative); Ketones 80 mg/dL (Negative); Leukocyte Esterase Negative (Negative); Nitrite Negative (Negative); Specific Gravity >= 1.030 (1.005-1.025); Urobilinogen 0.2 mg/dL (Up to 0.2); pH 6.5 (5-8)
[2023-01-11 08:08] LABS: COVID-19 PCR Negative (Negative); Influenza A PCR Negative (Negative); Influenza B PCR Negative (Negative); RSV PCR Negative (Negative)
[2023-01-11 08:09] LABS: Abs Immature Grans 0.01 10^3/uL (0.0-0.06); Absolute Basophil Count 0.02 10^3/uL (0.0-0.2); Absolute Eosinophil Count 0.05 10^3/uL (0.0-0.7); Absolute Monocyte Count 0.83 10^3/uL (0.1-0.8); Absolute Neutrophil Count 3.38 10^3/uL (1.2-6.7); Basophils % 0.4; Eosinophils % 0.9; HCT 49.5 % (36.0-46.0); Immature Grans % 0.2; Lymphocytes % 20.4; MCH 29.3 pg (27.0-33.0); MCHC 34.3 % (32.0-36.0); MCV 85 fL (80-95); Monocytes % 15.4; Neutrophils % 62.7; Platelet Count 295 10^3/uL (130-400); RDW 12.2 % (11.7-14.6); RDW-SD 38.1 fL; WBC 5.39 10^3/uL (4.4-10.8)
[2023-01-11 08:10] LABS: Source Nasopharynx
[2023-01-11 08:14] LABS: Bacteria Moderate HPF (Negative); Casts Negative LPF (Negative); Crystals Few Amorphous HPF (Negative); Epithelial Cells Many HPF (Negative); Mucus Negative (Negative); WBC 0-2 HPF (0-5)
[2023-01-11 08:15] LABS: C & S Indicated? No/Sq. Contamination
[2023-01-11] MEDS: Omnipaque 350 MG/ML 500 ML BTL-Imaging package 74 ML IJ (08:19)
[2023-01-11] MEDS: Normal Saline Flush 10 ML SYR IVP (08:23)
[2023-01-11] MEDS: Normal Saline - Diluent 50 ML VIAL IJ (08:23)
[2023-01-11 08:24] LABS: ALT 25 U/L (14-59); AST 17 U/L (15-37); Albumin 4.3 g/dL (3.4-5.0); Alkaline Phosphatase 85 U/L (46-116); Anion Gap 11.7 mmol/L (3-11); BUN 15 mg/dL (7-18); Bilirubin, Total 1.2 mg/dL (0.2-1.0); CO2 25.3 mmol/L (21.0-32.0); CREATININE 0.8 mg/dL (0.55-1.02); Calcium 9.6 mg/dL (8.5-10.1); Chloride 105 mmol/L (98-107); Estimated GFR 105.45 (mL/min/1.73m2); Glucose 104 mg/dL (74-106); Lipase 24 U/L (16-77); Potassium 3.7 mmol/L (3.5-5.1); Sodium 142 mmol/L (136-145); Total Protein 8.2 g/dL (6.4-8.2)
[2023-01-11] MEDS: Normal Saline 1,000 ML 1000 ML IV (08:35)
--- NOTE | 2023-01-11 08:40 | DI.VRAD_ITS ---
PROCEDURE INFORMATION: Exam: CT Abdomen And Pelvis With Contrast Exam date and time: 01/11/2023 8:18 AM Age: 22 years old Clinical indication: Abdominal pain TECHNIQUE: Imaging protocol: Computed tomography of the abdomen and pelvis with contrast. COMPARISON: CT ABD PELVIS WITH CONTRAST 01/23/2016 10:14 AM. Report not available. FINDINGS: Liver: No focal hepatic lesion identified. Gallbladder and bile ducts: No radiodense gallbladder calculi seen. Pancreas: No CT evidence for acute pancreatitis. Spleen: No splenomegaly. Adrenal glands: No mass. Kidneys and ureters: No hydronephrosis or evidence for pyelonephritis. Stomach and bowel: See Appendix finding. Appendix: The appendix is identified in the right lower quadrant. It is mildly thick-walled and fluid-filled as is the adjacent cecum. The appendix is minimally dilated to approximately 7 mm in maximum diameter. Mild haziness in the periappendiceal fat. Intraperitoneal space: Small amount of low-density pelvic fluid. Vasculature: No abdominal aortic aneurysm. Lymph nodes: Mesenteric lymphadenopathy. Urinary bladder: Mild thickening of the urinary bladder with stranding in the adjacent fat. Reproductive: Central hypodensity in the uterus, likely secretory phase endometrium. 1.7 cm right ovarian cyst. Bones/joints: No pertinent acute abnormality seen. Soft tissues: No pertinent acute abnormality seen. IMPRESSION: 1. Minimally dilated, thick-walled, fluid-filled appendix with minimal haziness in the periappendiceal fat. Findings are borderline but in the appropriate clinical setting could reflect early appendicitis. Clinical correlation requested. 2. Mesenteric lymphadenopathy, nonspecific. Consider mesenteric adenitis. Cannot exclude neoplasm. 3. Mild bladder wall thickening with adjacent stranding suggesting possible cystitis. Please correlate clinically. 4. Right ovarian cyst. 5. THIS REPORT CONTAINS FINDINGS THAT MAY BE CRITICAL TO PATIENT CARE. The findings were verbally communicated via telephone conference with Ferdinand Rico at 8:39 AM EDT on 01/11/2023. The findings were acknowledged and understood. Dictated and Authenticated by: Jael Brice MD. Ordering:WAYNE Streeter MD
[2023-01-11 08:50] VITALS: BP 96/67; PULSE 72; RESP 18; TEMP 37.5; O2SAT 100
[2023-01-11] MEDS: Ondansetron 4 MG/2 ML VIAL IVP (09:46)
[2023-01-11] MEDS: Ketorolac 15 MG/ML VIAL IVP (09:46)
[2023-01-11 10:26] LABS: Abs Immature Grans 0.02 10^3/uL (0.0-0.06); Absolute Basophil Count 0.02 10^3/uL (0.0-0.2); Absolute Eosinophil Count 0.03 10^3/uL (0.0-0.7); Absolute Lymphocyte Count 1.03 10^3/uL (1.2-3.4); Absolute Monocyte Count 0.71 10^3/uL (0.1-0.8); Absolute Neutrophil Count 4.54 10^3/uL (1.2-6.7); Basophils % 0.3; Eosinophils % 0.5; HCT 41.9 % (36.0-46.0); HGB 14.1 g/dL (11.2-15.7); Immature Grans % 0.3; Lymphocytes % 16.2; MCH 28.9 pg (27.0-33.0); MCHC 33.7 % (32.0-36.0); MCV 86 fL (80-95); MPV 9.6 fL (8.0-11.0); Monocytes % 11.2; Neutrophils % 71.5; Platelet Count 279 10^3/uL (130-400); RBC 4.88 10^6/uL (3.93-5.22); RDW 12.3 % (11.7-14.6); RDW-SD 38.9 fL; WBC 6.35 10^3/uL (4.4-10.8)
[2023-01-11 12:18] VITALS: BP 101/58; PULSE 67; RESP 18; TEMP 37.1; O2SAT 100
--- NOTE | 2023-01-11 13:04 | SCONE_ITS ---
Date of service: 01/11/23 Time of Service: 12:20 Assessment and Plan Assessment and plan (1) Abdominal pain: Status: Acute (2) Anxiety: (3) Depression: (4) Nonintractable migraine: (5) Poor dentition: Status: Acute (6) Intractable nausea and vomiting: Status: Acute (7) Acute diarrhea: Status: Acute (8) Gastroenteritis: Status: Acute Assessment and plan: Patient has been sick for approximately 4 days now she has no white count or left shift noted on repeat CBC. Minimal changes and some adenopathy noted on CT. This really was not appendicitis I would expect her to be much sicker and have a fever and white count and definite signs on CT. I did discuss with the patient that of course this could always be an early appendicitis if she is not feeling better in 24 hours or she starts developing more pain or fever and ca nnot keep any fluids down she should come back to the ER. I also discussed with Dr. Rico. We will discharge her home with some medication for nausea. He is comfortable with this diagnosis as well. This document was created with voice activated software and may contain errors. 60 mins spent with the patient today. History of Present Illness Narrative: Patient was seen and examined in the ER. She comes into the ER today complaining of 4 days of lower abdominal pain equally bilaterally, diarrhea (more than 3 liquid stools a day) but no blood. No fever or chills. She has had no appetite. She has been very nauseous. Today she developed vomiting and the became became worse and she came into the ER. She did receive IV fluids, antiemetics and pain medication and is feeling better. She still is not really hungry. She has never had anything like this before. She denies any travel. No recent antibiotics. 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 However its only lasted 1 to 2 days and this has been prolonged. No one else at home is ill. She has never had any abdominal surgery before. Review of Systems All systems reviewed & are unremarkable except as noted in HPI and below PFSH All Active Problems (Updated 01/11/23 @ 21:43 by Bessy Orta DO) Gastroenteritis (Acute) Acute diarrhea (Acute) Intractable nausea and vomiting (Acute) Poor dentition (Acute) Abdominal pain (Acute) Contraception (Acute) Medical History Anxiety Depression Episodic peripheral vertigo Nonintractable migraine (01/12/16) Surgical History No significant past surgical history Family History Mother Healthy adult on routine physical examination Migraines Mental disorder Depression/anxiety Father Substance abuse Essential hypertension Heart disease Hyperlipidemia Mental disorder Depression/anxiety Myocardial infarction Asthma Other H/O blood clots PGM- from abd- caused stroke Diabetes PGM Mental disorder Grandparent - depression Stroke PGM Sister Asthma Social History Smoking/Tobacco Use Status: Current every day Tobacco Type: e-cigarettes Tobacco: How many years used: 2 Smoking risk assessment performed?: Yes Alcohol Intake: current Alcohol Intake frequency: holidays/special occasions only Drug use: Never Substance use type: does not use Do you feel safe at home: Yes Do you feel safe in your relationship?: Yes Female Reproductive History Menstrual control method: progesterone injection (Lot#: [id number]; 03/2021) Exam Const General: cooperative, healthy appearing, comfortable and no acute distress Nutritional Appearance: average body habitus and well nourished Orientation: alert, awake and oriented x3 HENMT Head: normal to inspection Teeth and gingiva: poor dentition Resp Effort & Inspection: normal respiratory effort and able to speak in complete sentences Auscultation: clear to auscultation bilaterally Cardio Rate: regular rate Rhythm: regular rhythm GI Inspection: normal to inspection, non-distended, scaphoid and no scars Palpation: soft, not firm, no guarding, no masses, not rigid, tender (Mild tenderness in the lower part of the abdomen equal left and right) and No ascites Auscultation: normal bowel sounds Results Last Vital Signs Temp 37.1 C 01/11/23 12:18 Pulse 67 01/11/23 12:18 Resp 18 01/11/23 12:18 BP 101/58 L 01/11/23 12:18 Pulse Ox 100 01/11/23 12:18 Labs 01/11/23 10:15 01/11/23 08:00 Labs: Laboratory Results - last 24 hr 01/11/23 01/11/23 01/11/23 07:21 07:37 08:00 WBC RBC Hgb Hct MCV MCH MCHC RDW Plt Count MPV Immature Gran % Neutrophils % Lymphocytes % Monocytes % Eosinophils % Basophils % Nucleated RBC % Absolute Neutrophils Absolute Lymphocytes Absolute Monocytes Absolute Eosinophils Absolute Basophils Sodium 142 Potassium 3.7 Chloride 105 Carbon Dioxide 25.3 Anion Gap 11.7 H BUN 15 Creatinine 0.8 Est GFR (CKD-EPI 2020) 105.45 Glucose 104 Calcium 9.6 Total Bilirubin 1.2 H AST 17 ALT 25 Alkaline Phosphatase 85 Total Protein 8.2 Albumin 4.3 Lipase 24 Urine Color Yellow Urine Clarity Sl Cloudy Urine pH 6.5 Ur Specific [place] >= 1.030 H Urine Protein 100 H Urine Ketones 80 H Urine Blood Trace-intact H Urine Nitrite Negative Urine Bilirubin Small H Urine Urobilinogen 0.2 Ur Leukocyte Esterase Negative Urine RBC 5-10 H Urine WBC 0-2 Ur Epithelial Cells Many Urine Crystals Few Amorphous Urine Bacteria Moderate Urine Casts Negative Urine Mucus Negative Ur Culture Indicated? No/Sq. Contamination Urine Glucose Negative COVID-19 Source Nasopharynx SARS-CoV-2 (PCR) Negative Influenza Type A (PCR) Negative Influenza Type B (PCR) Negative RSV (PCR) Negative 01/11/23 01/11/23 08:00 10:15 WBC 5.39 6.35 RBC 5.80 H 4.88 Hgb 17.0 H 14.1 D Hct 49.5 H 41.9 MCV 85 86 MCH 29.3 28.9 MCHC 34.3 33.7 RDW 12.2 12.3 Plt Count 295 279 MPV 9.0 9.6 Immature Gran % 0.2 0.3 Neutrophils % 62.7 71.5 Lymphocytes % 20.4 16.2 Monocytes % 15.4 11.2 Eosinophils % 0.9 0.5 Basophils % 0.4 0.3 Nucleated RBC % 0.0 0.0 Absolute Neutrophils 3.38 4.54 Absolute Lymphocytes 1.10 L 1.03 L Absolute Monocytes 0.83 H 0.71 Absolute Eosinophils 0.05 0.03 Absolute Basophils 0.02 0.02 Sodium Potassium Chloride Carbon Dioxide Anion Gap BUN Creatinine Est GFR (CKD-EPI 2020) Glucose Calcium Total Bilirubin AST ALT Alkaline Phosphatase Total Protein Albumin Lipase Urine Color Urine Clarity Urine pH Ur Specific [place] Urine Protein Urine Ketones Urine Blood Urine Nitrite Urine Bilirubin Urine Urobilinogen Ur Leukocyte Esterase Urine RBC Urine WBC Ur Epithelial Cells Urine Crystals Urine Bacteria Urine Casts Urine Mucus Ur Culture Indicated? Urine Glucose COVID-19 Source SARS-CoV-2 (PCR) Influenza Type A (PCR) Influenza Type B (PCR) RSV (PCR) CBC White Blood Count 6.35 10^3/uL (4.4-10.8) 01/11/23 Red Blood Count 4.88 10^6/uL (3.93-5.22) 01/11/23 Hemoglobin 14.1 g/dL (11.2-15.7) 01/11/23 Hematocrit 41.9 % (36.0-46.0) 01/11/23 Mean Corpuscular Volume 86 fL (80-95) 01/11/23 Mean Corpuscular Hemoglobin 28.9 pg (27.0-33.0) 01/11/23 Mean Corpuscular Hemoglobin Concent 33.7 % (32.0-36.0) 12/15 06/07 Red Cell Distribution Width 12.3 % (11.7-14.6) 01/11/23 Platelet Count 279 10^3/uL (130-400) 01/11/23 Mean Platelet Volume 9.6 fL (8.0-11.0) 01/11/23 Neutrophils % 71.5 01/11/23 Lymphocytes % 16.2 01/11/23 Monocytes % 11.2 01/11/23 Eosinophils % 0.5 01/11/23 Basophils % 0.3 01/11/23 Immature Granulocytes % 0.3 01/11/23 Comprehensive Metabolic Panel Sodium 142 mmol/L (136-145) 01/11/23 08:00 Potassium 3.7 mmol/L (3.5-5.1) 01/11/23 08:00 Chloride 105 mmol/L (98-107) 01/11/23 08:00 Carbon Dioxide 25.3 mmol/L (21.0-32.0) 01/11/23 08:00 BUN 15 mg/dL (7-18) 01/11/23 08:00 Creatinine 0.8 mg/dL (0.55-1.02) 01/11/23 08:00 Estimated GFR/1.73 m2 Not Reportable 01/19/16 07:55 Glucose 104 mg/dL (74-106) 01/11/23 08:00 Calcium 9.6 mg/dL (8.5-10.1) 01/11/23 08:00 Total Bilirubin 1.2 mg/dL (0.2-1.0) H 01/11/23 08:00 ALT 25 U/L (14-59) 01/11/23 08:00 AST 17 U/L (15-37) 01/11/23 08:00 Alkaline Phosphatase 85 U/L (46-116) 01/11/23 08:00 Total Protein 8.2 g/dL (6.4-8.2) 01/11/23 08:00 Albumin 4.3 g/dL (3.4-5.0) 01/11/23 08:00
== END 2023-01-11 12:29 | disposition home or self-care (01) ==
PROVIDERS: Physician Assistant; Emergency Provider Emergency Medicine
DX: R10.9 Unspecified abdominal pain (principal); R11.10 Vomiting, unspecified; R19.7 Diarrhea, unspecified; R10.811 Right upper quadrant abdominal tenderness; R10.812 Left upper quadrant abdominal tenderness; R10.813 Right lower quadrant abdominal tenderness; R10.814 Left lower quadrant abdominal tenderness; R59.0 Localized enlarged lymph nodes; N83.201 Unspecified ovarian cyst, right side; R00.0 Tachycardia, unspecified; Z20.822 Contact with and (suspected) exposure to COVID-19
CPT/HCPCS: 36415; 80053; 81025; 83690; 87637; 96361; 96374; 96375; 99285; 74177; 81003; 81015; 85025; 99284; J1885; J2405

== ENCOUNTER 2023-11-17 15:36 | Emergency (ER) | payer SELFPAY ==
[2023-11-17 15:41] VITALS: BP 136/73; PULSE 111; RESP 22; TEMP 36.6; O2SAT 98
--- NOTE | 2023-11-17 15:45 | DI.RAD_ITS ---
Exam(s) XR CHEST 2V PA LATERAL EXAM: XR CHEST 2V PA LATERAL CLINICAL HISTORY: chest pain, cough TECHNIQUE: 2D digital imaging was performed of the chest. Two images were obtained. PA and lateral views were obtained. COMPARISON: CR,XR XR CHEST 2V PA LATERAL from 01/08/2022 FINDINGS: MEDIASTINUM: Normal. HEART: Normal. PULMONARY VASCULATURE: Normal. LUNGS: Clear. PLEURAL SPACE: No pleural effusion or pneumothorax. BONE:Within normal limits for the patient's age. OTHER FINDINGS:Normal. IMPRESSION: No acute pulmonary findings. DATA REPOSITORY: RADIATION DOSE DELIVERED:
[2023-11-17] MEDS: predniSONE 20 MG TAB 40 MG PO (16:11)
[2023-11-17] MEDS: Albuterol HFA 8 GM 60 PUFF INH IH (16:11)
[2023-11-17] MEDS: Inhaler, Assist Device 1 EACH MC (16:11)
--- NOTE | 2023-11-17 16:13 | ED.GENADUL_ITS ---
Discharge Plan Disposition Patient Disposition: Home Discharge Details Clinical Impression: Bronchitis Primary Care Provider: Unknown,Unknown ED Provider: Una Camejo Home Meds and New Rx's Prescriptions: New prednisone 20 mg tablet 40 mg PO ONCE Qty: 8 0RF Discharge Instructions Instructions: Acute Bronchitis (ED) Additional Instructions: Take the prednisone as prescribed Use albuterol 2 puffs every 4-6 hours as needed for cough, wheeze, shortness of breath Increased fluids Next dose of prednisone is tomorrow Ibuprofen and Tylenol as needed for pain Return earlier with fever, chills, worsening shortness of breath, or should you have new or worsening symptoms Stand Alone Forms: Work Release Discharge Data Discharge Date/Time-TO BE ENTERED AT DEPARTURE: 11/17/23 17:20 HPI General Date/Time Provider Initiated Documentation: 11/17/23 15:51 . HPI Narrative: This 23-year-old female presents with cough, back pain, runny nose, and shortness of breath. Patient states she has been sick for approximately a week and a half. 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 She denies any blood in her sputum. She denies any chest pain. She denies known history of asthma but does smoke daily. She denies any calf pain or swelling, exogenous hormones, recent flights, surgeries, long drives. Related Data Home Medications Medication Instructions Recorded Confirmed prednisone 20 mg tablet 40 mg (2 x 20 mg) PO ONCE #8 tabs 11/17/23 Previous Rx's Medication Instructions Recorded prednisone 20 mg tablet 40 mg (2 x 20 mg) PO ONCE #8 tabs 11/17/23 Allergies Allergy/AdvReac Type Severity Reaction Status Date / Time diphenhydramine HCl Allergy Mild RASH Unverified 11/17/23 15:44 [From Benadryl] General Stated Complaint: Nk/Back Pain EVELYN: 4 Course Vital Signs Vital signs: Vital Signs Temperature 36.6 C 11/17/23 15:41 Pulse 111 H 11/17/23 15:41 Respiratory Rate 22 11/17/23 15:41 Blood Pressure 136/73 11/17/23 15:41 Pulse Oximetry 98 11/17/23 15:41 Temperature 36.6 C 11/17/23 15:41 Temperature Source Oral 11/17/23 15:41 Pulse 111 H 11/17/23 15:41 Respiratory Rate 22 11/17/23 15:41 Respiratory Effort Normal, Non-Labored 11/17/23 15:45 Blood Pressure 136/73 11/17/23 15:41 Pulse Oximetry 98 11/17/23 15:41 Oxygen Delivery Method Room Air 11/17/23 15:41 Oxygen Flow Rate 0 11/17/23 15:41 Medical Decision Making 23-year-old female presenting with cough and shortness of breath with back pain which started yesterday Patient states she has been sick for approximately 2 weeks Low risk for PE without pleuritic pain or hypoxia, repeat pulse of 82 without intermittent intervention aside from an albuterol dose show intermittent Feels improved after albuterol, chest x-ray was ordered does not show evidence of acute abnormality per radiology interpretation and my review Prednisone daily, albuterol 2 puffs every 4-6 hours recommended Will treat for bronchitis Smoking cessation reviewed Vital stable Return precautions reviewed and patient expressed understanding Quality:SDOH Health Related Social Needs: No Data to Display PFSH All Active Problems (Updated 11/17/23 @ 17:01 by CUONG Robles) Bronchitis (Acute) Gastroenteritis (Acute) Acute diarrhea (Acute) Intractable nausea and vomiting (Acute) Poor dentition (Acute) Contraception (Acute) Medical History Anxiety Depression Episodic peripheral vertigo Nonintractable migraine (01/12/16) Surgical History No significant past surgical history Family History Mother Healthy adult on routine physical examination Migraines Mental disorder Depression/anxiety Father Substance abuse Essential hypertension Heart disease Hyperlipidemia Mental disorder Depression/anxiety Myocardial infarction Asthma Other H/O blood clots PGM- from abd- caused stroke Diabetes PGM Mental disorder Grandparent - depression Stroke PGM Sister Asthma Social History Smoking/Tobacco Use Status: Current every day Tobacco Type: e-cigarettes Tobacco: How many years used: 2 Smoking risk assessment performed?: Yes Alcohol Intake: current Alcohol Intake frequency: holidays/special occasions only Drug use: Never Substance use type: does not use Do you feel safe at home: Yes Do you feel safe in your relationship?: Yes Female Reproductive History Menstrual control method: progesterone injection (Lot#: [id number]; 03/2021) PAWSS Have you Been Recently Intoxicated or Drunk Within the Last 30 days?: No Have you Ever Experienced Previous Episodes of Alcohol Withdrawal?: No Have you ever Experienced Withdrawal Seizures?: No Have you ever Experienced Delirium Tremens(DT)s?: No Have you ever undergone Alcohol Rehabilitation Treatment (i.e, inpt ot outpatient treatment programs)?: No Have you ever Experienced Blackouts?: No Have you ever Combined Alcohol with other Downers within the last 90 days?: No Have you ever Combined Alcohol with any other Substance of Abuse during the last 90 days?: No Positive Blood Alcohol level on Presentation? [PCS.BAL]: No Evidence of Increased Autonomic Activity (i.e. HR>120, tremor, sweating, agitation, nausea)?: No Result: 0
[2023-11-17 16:35] LABS: COVID-19 PCR Negative (Negative); Influenza A PCR Negative (Negative); Influenza B PCR Negative (Negative); RSV PCR Negative (Negative)
[2023-11-17 16:36] LABS: Source NASOPHARYNX
[2023-11-17 17:08] VITALS: PULSE 91; RESP 18; TEMP 36.4; O2SAT 100
== END 2023-11-17 17:20 | disposition home or self-care (01) ==
LOC: ER 17:21
PROVIDERS: Emergency Provider Physician Assistant
DX: J40 Bronchitis, not specified as acute or chronic (principal); M54.50 Low back pain, unspecified; F17.290 Nicotine dependence, other tobacco product, uncomplicated; Z11.52 Encounter for screening for COVID-19
CPT/HCPCS: 87637; 99283; 71046; J7512